=== PATIENT | female | born 1975 | race African-American/Black ===

== ENCOUNTER 2018-02-14 08:47 | Inpatient (IN) | payer BC ==
[~2018-02-14] VITALS: Ht 165.1 cm; Wt 98.9 kg
[2018-02-14] VITALS (12 sets, daily range): BP systolic 126–161; BP diastolic 83–107
[~2018-02-14 08:47] MED LIST: IBUPROFEN600 MG ORAL; LEVOTHYROXINE100 MCG ORAL; LOESTRIN1 EAC1 PO; LORTAB 10-3251 EACH PO; NORCO 5-325 TA1 EACH ORAL; OMEPRAZOLE40 M1 ORAL; VITAMIN D400 INTLU ORAL; WELLBUTRIN XL150 M1 ORAL; XANAX0.25 MG ORAL
--- NOTE | 2018-02-14 09:23 | Pre-Procedure Note/Attestation ---
Pre-Procedure Note/Attestation Complete Prior to Procedure Planned Procedure: not applicable Procedure Narrative: Myomectomy Indications for Procedure Pre-Operative Diagnosis: Severe uterine bleeding, severe dysmenorrhea, uterine fibroids, uterine adenomyosis Attestation I attest that I discussed the nature of the procedure; its benefits; risks and complications; and alternatives (and the risks and benefits of such alternatives ), prior to the procedure, with the patient (or the patient's legal manufacturer's representative). I attest that, if there was a reasonable possibility of needing a blood transfusion, the patient (or the patient's legal manufacturer's representative) was given the [facility] standardized written summary, pursuant to the [place]at[place] Blood Safety Act ([place] Health and Safety Code # 1645, as amended). I attest that I re-evaluated the patient just prior to the surgery and that there has been no change in the patient's H&P, except as documented below:NONE JIM COLON February 14, 2018 09:23
[2018-02-14] MEDS ORDERED: Ropivacaine 5mg/ml Vial 30ml INJ ONE (09:58)
[2018-02-14] MEDS ORDERED: Bupivacaine 0.5% Inj 30 ml vial INJ ONE (09:58)
[2018-02-14] MEDS ORDERED: LR 1000ml ONE (10:00)
[2018-02-14] MEDS ORDERED: Sterile Water Irrig 1000ml IRRIG ONE (10:00)
[2018-02-14] MEDS ORDERED: NS Irrig 1000ml ONE (10:00)
[2018-02-14] MEDS ORDERED: fentaNYL 100 mcg/2 mL IV ONE (10:07)
[2018-02-14] MEDS ORDERED: Midazolam 2mg/2ml Inj ONE (10:07)
[2018-02-14] MEDS ORDERED: Sugammadex Sodium 200mg/2ml vial IV ONE (10:07)
[2018-02-14] MEDS ORDERED: Dexamethasone 4mg/ml vial ONE (10:08)
[2018-02-14] MEDS ORDERED: Propofol 200mg/20ml IV ONE (10:08)
[2018-02-14] MEDS ORDERED: Ketorolac 30mg Inj ONE (10:08)
[2018-02-14] MEDS ORDERED: Zemuron 50mg/5ml Inj IV ONE (10:22)
--- NOTE | 2018-02-14 11:04 | Anethesia Preoperative Eval ---
Anesthesia Pre-op PMH/ROS General Date of Evaluation: February 14, 2018 Time of Evaluation: 10:00 Anesthesiologist: ASA Score: ASA 2 Mallampati Score Class I : Soft palate, uvula, fauces, pillars visible Class II: Soft palate, uvula, fauces visible Class III: Soft palate, base of uvula visible Class IV: Only hard plate visible Mallampati Classification: Class II Surgeon: elizabeth Diagnosis: uterine fibroids Surgical Procedure: myomectomy Anesthesia History: none Family History: no anesthesia problems Allergies: Coded Allergies: CEPHALEXIN (Verified Allergy, Severe, Hives, 03/23/15) CIPROFLOXACIN (Verified Allergy, Severe, Rash, 03/23/15) SULFA (SULFONAMIDE ANTIBIOTICS) (Unverified Allergy, Unknown, 03/23/15) ACETAMINOPHEN (Verified Adverse Reaction, Unknown, GI UPSET, 03/23/15) PROPOXYPHENE (Verified Adverse Reaction, Unknown, GI UPSET, 03/23/15) Medications: see eMAR Past Medical History Cardiovascular: Denies: HTN, CAD, ID, valve dz, arrhythmia, other Pulmonary: Denies: asthma, COPD, JACK, other Gastrointestinal/Genitourinary: Reports: GERD; Denies: CRI, ESRD, other Neurologic/Psychiatric: Reports: depression/anxiety; Denies: dementia, CVA, TIA, other Endocrine: Denies: DM, hypothyroidism, steroids, other HEENT: Denies: cataract (L), cataract (R), glaucoma, W[place]OAG (L), WAMP[place]OAG (R), other Hematology/Immune: Denies: anemia, DVT, bleeding disorder, other Musculoskeletal/Integumentary: Denies: OA, RA, DJD, DDD, edema, other Other: obesity PMH Narrative: craniotomy x 2 (2012,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 Exam Physician Exam Last Vital Signs Date Time Temp Pulse Resp B/P (MAP) Pulse Ox O2 Delivery O2 Flow Rate FiO2 02/14/18 09:28 97.1 82 18 126/83 97 Room Air 97.1 Constitutional: NAD Cardiovascular: RRR Respiratory: CTA Gastrointestinal: S/NT/ND Airway Exam Mallampati Score: Class II MO: full ROM: full Teeth: intact Dentures: no upper, no lower Anesthesia Pre-op A/P Labs Urine Test Test 02/14/18 09:00 Urine HCG, Qualitative Negative (NEGATIVE) Radha Ferraro M.D. February 14, 2018 11:04
[2018-02-14] MEDS ORDERED: LR 1000ml 1,000 ML IVLG SCH (11:05)
[2018-02-14] MEDS ORDERED: DiphenhydrAMINE 50mg/ml Inj IVP PRN (11:15)
[2018-02-14] MEDS ORDERED: Labetalol 5mg/ml 20ml vial IV PRN (11:15)
[2018-02-14] MEDS ORDERED: Midazolam 2mg/2ml Inj IVP PRN (11:15)
[2018-02-14] MEDS ORDERED: Interceed TOPIC ONE (12:02)
--- NOTE | 2018-02-14 13:00 | Brief Operative Note ---
Immediate Post Operative Note Operative Note Pre-op Diagnosis: Severe uterine bleeding, severe dysmenorrhea, uterine fibroids, uterine adenomyosis Procedure: Extensive uterine myomectomy Post-op Diagnosis: Same + extensive pelvic adhesions Post-op Diagnosis: same as pre-op plus Surgeon: Jim Colon MD Supervisor Doping: Purvi Roberts MD Anesthesiologist: MD Jasmine Anesthesia: general Specimen: yes - multiple fibroids Complications: none Condition: stable Fluids: D5 1/2 NL @125 cc/hr Estimated Blood Loss: volume - 100 ml Drains: none Implant(s) used?: No JIM COLON February 14, 2018 13:00
--- NOTE | 2018-02-14 13:04 | Immediate Post-Op Evaluation ---
Immediate Post-Op Evalulation Immediate Post-Op Evalulation Procedure: open abdominal myomectomy Date of Evaluation: February 14, 2018 Time of Evaluation: 12:50 IV Fluids: LR 1400ml Blood Products: 0 Estimated Blood Loss: 100ml Urinary Output: 400ml Blood Pressure Systolic: 146 Blood Pressure Diastolic: 100 Pulse Rate: 90 Respiratory Rate: 19 O2 Sat by Pulse Oximetry: 100 Temperature (Fahrenheit): 97.6 Pain Score (1-10): 9 Nausea: No Vomiting: No Complications none Patient Status: none Drug: none ordered Radha Ferraro M.D. February 14, 2018 13:04
[2018-02-14] MEDS: fentaNYL 100 mcg/2 mL IV PRN ×3 (13:10→13:40)
[2018-02-14] MEDS: Morphine Sulfate 4mg/ml Inj IVP SCH (13:15)
[2018-02-14] MEDS ORDERED: Docusate 100mg cap ORAL PRN (15:30)
[2018-02-14] MEDS ORDERED: Rate Change PCA 1 Each MISC PRN (16:00)
[2018-02-14] MEDS ORDERED: Naloxone 0.4mg/ml Inj IVP PRN (16:00)
[2018-02-14] MEDS: PCA Morphine 1mg/ml 30 ML IV PRN ×2 (16:08→20:12)
[2018-02-14] MEDS: Ketorolac 30mg Inj IM SCH ×2 (16:25→22:00)
[2018-02-14] MEDS: PCA Education Pamphlet MISC SCH (16:29)
[2018-02-14] MEDS: D5 1/2NS w/KCl 20mEq 1,000 ML IV SCH (16:48)
[2018-02-14] MEDS: PCA shift volume MISC SCH (19:18)
--- NOTE | 2018-02-14 22:31 | Operative Note - Dictated ---
DATE OF OPERATION: 02/14/2018 PREOPERATIVE DIAGNOSES: Uterine fibroids, extensive menometrorrhagia, and extensive pelvic pain. POSTOPERATIVE DIAGNOSES: Uterine fibroids, extensive menometrorrhagia, extensive pelvic pain, plus extensive pelvic adhesions due to two previous myomectomies. PROCEDURES PERFORMED: Extensive lysis of pelvic adhesions, enterolysis, and multiple myomectomy. SURGEON: Manny Kenyon M.D. REIMBURSEMENT AUDITOR: Purvi Roberts M.D. ANESTHESIOLOGIST: Dr. Ferraro. ANESTHESIA TYPE: General endotracheal. PROCEDURE IN DETAIL: After all the appropriate consents were signed, the patient was brought to the operating room and placed on the table in supine position. General endotracheal anesthesia was induced without complication. The patient was then placed in a dorsal lithotomy position. Perineum, vagina, and abdomen were prepped and draped in the usual fashion for the procedure. The patient was then evaluated and a Pfannenstiel incision was made. The Pfannenstiel incision was carried through the subcutaneous tissue and the fascia was nicked. The fascial incision was then extended bilaterally to expose the rectus muscle. The rectus muscle was parted in the midline and the peritoneum was entered sharply. The uterus was now visualized. The Damon retractor was placed and the procedure continued with grasping the uterus, retracting the uterus, and the pelvis. There were a number of adhesions on top of the uterine fundus and some of the adhesions were omental and some of the adhesions were bowel. At this time, adhesiolysis was undertaken and after approximately 25 to 30 minutes of adhesiolysis, the uterus was finally fully visualized and the areas of myomas were visualized. The enterolysis was performed along the uterus as well as the left adnexa. At this time, the uterus was injected with vasopressin and the fibroids were identified and gradually one after the other were removed. There were extensive areas of adenomyosis, which were also removed to reduce the bulk of adenomyosis on the uterus. Once all the areas were removed, the uterus was now closed using #0 Vicryl suture in multiple layers. The cavity was also closed prior to that with a 2-0 Vicryl suture. At this time, the procedure was continued with once again evaluating the uterus. Uterus was now fully closed and fully hemostatic. Intercede was placed on top of the uterus to prevent additional adhesion formation. The patient was now once again evaluated and the retractor was removed. The peritoneum was closed using 2-0 Vicryl suture. The muscles were approximated in the midline with #0 Vicryl suture and the fascia was closed using #0 Vicryl suture bilaterally. Plain suture was used to close the subcutaneous tissue. The skin was closed using stainless steel indira. The patient was now placed in the supine position and awakened from general anesthesia. She tolerated the procedure very well. She was transferred to the recovery room in excellent condition. Manny Zohra Kenyon DR: SOPHIE JOB#: [id number] CC:
[2018-02-15] VITALS: BP 124/80
[2018-02-15 04:00] VITALS: BP 128/88
[2018-02-15] MEDS: Ketorolac 30mg Inj IM SCH ×4 (04:00→22:04)
[2018-02-15 04:52] LABS: BASOPHILS % (AUTO) 1.5 % (0.0-2.0); EOSINOPHILS % (AUTO) 2.3 % (0.0-3.0); HEMATOCRIT 32.1 % (37.0-47.0); HEMOGLOBIN 10.5 G/DL (12.0-16.0); LYMPHOCYTES % (AUTO) 18.4 % (20.0-45.0); MEAN CORPUSCULAR VOLUME 90 FL (80-99); MONOCYTES % (AUTO) 11.9 % (1.0-10.0); NEUTROPHILS % (AUTO) 65.9 % (45.0-75.0); PLATELET COUNT 405 K/UL (150-450); RED BLOOD COUNT 3.56 M/UL (4.20-5.40); RED CELL DISTRIBUTION WIDTH 11.7 % (11.6-14.8); WHITE BLOOD COUNT 9.5 K/UL (4.8-10.8)
[2018-02-15 05:05] LABS: ANION GAP 9 mmol/L (5-15); BLOOD UREA NITROGEN 8 mg/dL (7-18); CALCIUM 8.4 MG/DL (8.5-10.1); CARBON DIOXIDE 26 MMOL/L (21-32); CHLORIDE 104 MMOL/L (98-107); CREATININE 0.7 MG/DL (0.55-1.30); POTASSIUM 3.7 MMOL/L (3.5-5.1); SODIUM 139 MMOL/L (136-145)
[2018-02-15] MEDS: PCA shift volume MISC SCH ×2 (07:00→19:29)
[2018-02-15 08:00] VITALS: BP 122/80
[2018-02-15] MEDS: D5 1/2NS w/KCl 20mEq 1,000 ML IV SCH ×4 (08:39→23:55)
[2018-02-15] MEDS ORDERED: Vitamin D 1000 IU Tab ORAL SCH (09:00)
[2018-02-15] MEDS ORDERED: BuPROPion XL 150mg tab ORAL SCH (09:00)
[2018-02-15 12:00] VITALS: BP 132/80
[2018-02-15] MEDS: Morphine Sulfate 4mg/ml Inj IVP SCH (13:15)
[2018-02-15] MEDS ORDERED: LORazepam Inj 2mg/ml 1ml IV PRN (15:15)
[2018-02-15] MEDS ORDERED: Docusate 100mg cap ORAL PRN (15:15)
[2018-02-15 16:00] VITALS: BP 126/89
[2018-02-15] MEDS: PCA Morphine 1mg/ml 30 ML IV PRN (16:13)
[2018-02-15] MEDS: PCA Education Pamphlet MISC SCH (16:14)
--- NOTE | 2018-02-15 17:38 | General Progress Note ---
Progress Note Progress Note POD #1 S/P extensive myomectomy, enterolysis, adhesion lysis Afebrile, ambulating, voiding Tolerating clear liquids Abdomen- soft Incision dry, clean, indira intact Dressing removed Increase ambulation Continue COMBAT SYSTEMS OFFICER, consider IM Morphine if IV is out JIM COLON February 15, 2018 17:38
[2018-02-15 20:50] VITALS: BP 124/84
[2018-02-16] VITALS: BP 128/80
[2018-02-16] MEDS: Ketorolac 30mg Inj IM SCH ×4 (04:17→21:01)
[2018-02-16 04:55] VITALS: BP 123/82
[2018-02-16] MEDS: PCA shift volume MISC SCH (07:27)
[2018-02-16] MEDS: D5 1/2NS w/KCl 20mEq 1,000 ML IV SCH ×2 (08:21→17:42)
[2018-02-16] MEDS: Vitamin D 1000 IU Tab ORAL SCH (08:22)
[2018-02-16] MEDS: BuPROPion XL 150mg tab ORAL SCH (08:22)
[2018-02-16] MEDS ORDERED: oxyCODONE HCL/Acetaminophen 5/325mg ORAL PRN (11:15)
[2018-02-16] MEDS: Morphine Sulfate 4mg/ml Inj IVP SCH (13:15)
[2018-02-16] MEDS: Docusate 100mg cap ORAL SCH (17:42)
[2018-02-16 20:25] VITALS: BP 120/77
[2018-02-17 00:43] VITALS: BP 123/71
[2018-02-17] MEDS: Ketorolac 30mg Inj IM SCH ×4 (04:06→22:00)
[2018-02-17 04:40] VITALS: BP 131/85
[2018-02-17] MEDS: D5 1/2NS w/KCl 20mEq 1,000 ML IV SCH ×2 (08:00)
[2018-02-17 08:15] VITALS: BP 143/95
[2018-02-17] MEDS: BuPROPion XL 150mg tab ORAL SCH (08:26)
[2018-02-17] MEDS: Docusate 100mg cap ORAL SCH ×3 (08:26→18:04)
[2018-02-17] MEDS: Vitamin D 1000 IU Tab ORAL SCH (08:26)
[2018-02-17 12:00] VITALS: BP 124/86
[2018-02-17] MEDS: Morphine Sulfate 4mg/ml Inj IVP SCH (13:15)
[2018-02-17] MEDS: Milk of Magnesia 30ml Ud ORAL SCH (16:36)
[2018-02-17 16:38] VITALS: BP 127/86
[2018-02-17] MEDS ORDERED: Milk of Magnesia 30ml Ud ORAL SCH (18:00)
[2018-02-17 20:21] VITALS: BP 143/91
[2018-02-18 00:23] VITALS: BP 135/84
[2018-02-18] MEDS: Ketorolac 30mg Inj IM SCH ×3 (03:53→16:00)
[2018-02-18 04:24] VITALS: BP 126/84
[2018-02-18 08:00] VITALS: BP 125/86
[2018-02-18] MEDS: Milk of Magnesia 30ml Ud ORAL SCH ×2 (08:13→13:00)
[2018-02-18] MEDS: Vitamin D 1000 IU Tab ORAL SCH (08:14)
[2018-02-18] MEDS: Docusate 100mg cap ORAL SCH ×2 (08:14→13:00)
[2018-02-18] MEDS: BuPROPion XL 150mg tab ORAL SCH (08:14)
[2018-02-18 12:00] VITALS: BP 132/80
[2018-02-18] MEDS: Morphine Sulfate 4mg/ml Inj IVP SCH (13:05)
[2018-02-18 16:00] VITALS: BP 128/78
== END 2018-02-18 17:45 | disposition home or self-care (01) | DRG 743 ==
LOC: SDSOVERFLO 08:47 → 3E 14:45
DX: D25.9 Leiomyoma of uterus, unspecified (principal); N99.4 Postprocedural pelvic peritoneal adhesions; N92.1 Excessive and frequent menstruation with irregular cycle; R10.2 Pelvic and perineal pain; E03.9 Hypothyroidism, unspecified; K21.9 Gastro-esophageal reflux disease without esophagitis; F32.9 Major depressive disorder, single episode, unspecified; Z88.6 Allergy status to analgesic agent; Z88.1 Allergy status to other antibiotic agents
CPT/HCPCS: 36415; 80048; 81025; 85025; 86850; 86900; 86901; 87081; J2250; J2405

== ENCOUNTER 2018-02-27 13:12 | Emergency (ER) | payer BC ==
[~2018-02-27] VITALS: Ht 165.1 cm; Wt 95.7 kg
[2018-02-27] MEDS ORDERED: Isovue-300 100ml vial INJ PRN (13:30)
[2018-02-27 13:39] VITALS: BP 108/77
[2018-02-27 13:58] LABS: BASOPHILS % (AUTO) 2.3 % (0.0-2.0); EOSINOPHILS % (AUTO) 10.9 % (0.0-3.0); HEMATOCRIT 37.3 % (37.0-47.0); LYMPHOCYTES % (AUTO) 24.6 % (20.0-45.0); MEAN CORPUSCULAR VOLUME 88 FL (80-99); MONOCYTES % (AUTO) 3.9 % (1.0-10.0); NEUTROPHILS % (AUTO) 58.2 % (45.0-75.0); PLATELET COUNT 597 K/UL (150-450); RED BLOOD COUNT 4.22 M/UL (4.20-5.40); RED CELL DISTRIBUTION WIDTH 11.9 % (11.6-14.8); WHITE BLOOD COUNT 10.1 K/UL (4.8-10.8)
[2018-02-27 14:10] LABS: ANION GAP 8 mmol/L (5-15); BLOOD UREA NITROGEN 11 mg/dL (7-18); CALCIUM 8.8 MG/DL (8.5-10.1); CARBON DIOXIDE 27 MMOL/L (21-32); CHLORIDE 105 MMOL/L (98-107); CREATININE 0.8 MG/DL (0.55-1.30); POTASSIUM 3.7 MMOL/L (3.5-5.1); SODIUM 140 MMOL/L (136-145)
[2018-02-27 14:17] LABS: ALANINE AMINOTRANSFERASE 17 U/L (12-78); ALBUMIN 3.3 G/DL (3.4-5.0); ALBUMIN/GLOBULIN RATIO 0.8 (1.0-2.7); ALKALINE PHOSPHATASE 77 U/L (46-116); ASPARTATE AMINO TRANSFERASE 12 U/L (15-37); BILIRUBIN,TOTAL 0.3 MG/DL (0.2-1.0)
[2018-02-27 15:00] LABS: APPEARANCE,URINE CLEAR; BILIRUBIN, URINE NEGATIVE (NEGATIVE); COLOR,URINE PALE YELLOW; GLUCOSE, URINE (UA) NEGATIVE (NEGATIVE); KETONES,URINE NEGATIVE (NEGATIVE); LEUKOCYTE ESTERASE ,URINE NEGATIVE (NEGATIVE); NITRITE,URINE NEGATIVE (NEGATIVE); PH,URINE 7 (4.5-8.0); PROTEIN,URINE NEGATIVE (NEGATIVE); UROBILINOGEN,URINE NORMAL MG/DL (0.0-1.0)
[2018-02-27 15:45] VITALS: BP 127/79
--- NOTE | 2018-02-27 15:48 | Emergency Room Report ---
History of Present Illness General Chief Complaint: Abdominal Pain Source: Patient, Medical Record Present Illness HPI 42-year-old female presents to the emergency department complaining of 10 out of 10 in severity postoperative pain in the lower abdomen/uterus area. Patient status post Myomectomy which was performed on 02/14 . She reports that she has experienced short episodes of chills since yesterday she denies fever. Patient states that initially she was feeling fine and was discharged home with just Motrin however since the she has had acute progression of her pain and tenderness. She denies vaginal discharge or swollen tender lymph nodes. Patient denies erythema, discharge or dehiscence of her surgical wound. Patient states that she contacted her LEATHER CUTTER who performed the procedure and he instructed her to go to the emergency department for evaluation. Pain is exacerbated with standing up straight. She reports new onset nausea since yesterday denies vomiting she denies dysuria, hematuria, constipation or diarrhea. Allergies: Coded Allergies: CEPHALEXIN (Verified Allergy, Severe, Hives, 03/23/15) CIPROFLOXACIN (Verified Allergy, Severe, Rash, 03/23/15) SULFA (SULFONAMIDE ANTIBIOTICS) (Unverified Allergy, Unknown, 03/23/15) ACETAMINOPHEN (Verified Adverse Reaction, Unknown, GI UPSET, 03/23/15) PROPOXYPHENE (Verified Adverse Reaction, Unknown, GI UPSET, 03/23/15) Patient History Past Medical History: see triage record Past Surgical History: none Pertinent Family History: none Last Menstrual Period: 02/24/18 Reviewed Nursing Documentation: PMH: Agreed; PSxH: Agreed Nursing Documentation-PMH Past Medical History: No History, Except For Hx Cardiac Problems: No Hx Cancer: No Hx Gastrointestinal Problems: No Hx Neurological Problems: Yes Hx Neurologic Surgery: Yes - CRANIOTOMY IN 2012 AND 2016 DUE TO CHIARI MALFORMATION Review of Systems All Other Systems: negative except mentioned in HPI Physical Exam Vital Signs Date Time Temp Pulse Resp B/P (MAP) Pulse Ox O2 Delivery O2 Flow Rate FiO2 02/27/18 13:17 98.0 92 18 112/77 95 Room Air 98.1 Sp02 EP Interpretation: reviewed, normal General Appearance: alert, GCS 15, non-toxic, moderate distress Head: normocephalic, atraumatic ENT: hearing grossly normal, normal voice Neck: full range of motion Respiratory: lungs clear, normal breath sounds, speaking full sentences Cardiovascular #1: regular rate, rhythm Gastrointestinal: normal bowel sounds, soft, non-distended, no guarding, other - Moderate TTP to the lower abdomen, surgical scar noted to be healing without obvious sigs of infection. no erythema, d/c or dehiscence. Rectal: deferred Genitourinary: normal inspection Musculoskeletal: back normal, gait/station normal, normal range of motion, non- tender Neurologic: alert, oriented x3, responsive, motor strength/tone normal, sensory intact, speech normal, grossly normal Psychiatric: judgement/insight normal Skin: normal color, no rash, warm/dry, well hydrated, wd healing/no infection noted, other - surgical scar noted to be healing without obvious sigs of infection. no erythema, d/c or dehiscence. Lymphatic: no adenopathy Medical Decision Making PA Attestation Dr. Pittman is my supervising Physician whom patient management has been discussed with. Diagnostic Impression: Primary Impression: Post-operative pain ER Course 42-year-old female presents to the emergency department complaining of 10 out of 10 in severity postoperative pain in the lower abdomen/uterus area. Patient status post Myomectomy which was performed on 02/14 . She reports that she has experienced short episodes of chills since yesterday she denies fever. Patient states that initially she was feeling fine and was discharged home with just Motrin however since the she has had acute progression of her pain and tenderness. She denies vaginal discharge or swollen tender lymph nodes. Patient denies erythema, discharge or dehiscence of her surgical wound. Patient states that she contacted her LEATHER CUTTER who performed the procedure and he instructed her to go to the emergency department for evaluation. Pain is exacerbated with standing up straight. She reports new onset nausea since yesterday denies vomiting she denies dysuria, hematuria, constipation or diarrhea. Ddx considered but are not limited to wound dehiscence, abscess formation, cellulitis, seroma , peritonitis just to name a few. Vital signs: are WNL, pt. is afebrile H&PE are most consistent with was operative pain. ORDERS: -CT Abdomen and Pelvis with contrast. CBC, CMP, , UA- WNL, no evidence to suggest infection. Hcg: Negative ED INTERVENTIONS: [place] PO I discussed the results of this patient's labs and imaging with Dr. Kenyon, who is the LEATHER CUTTER who performed her procedure. He states patient can be discharged home with oral pain medications and has instructed her to calm to the office for follow-up evaluation on Saturday. She also stated that she actually has an appointment tomorrow with him that his arty been scheduled previously. DISCHARGE: At this time pt. is stable for d/c to home. Will provide printed patient care instructions, and any necessary prescriptions. Care plan and follow up instructions have been discussed with the patient prior to discharge. Labs Test 02/27/18 13:35 02/27/18 14:30 White Blood Count 10.1 K/UL (4.8-10.8) Red Blood Count 4.22 M/UL (4.20-5.40) Hemoglobin 12.0 G/DL (12.0-16.0) Hematocrit 37.3 % (37.0-47.0) Mean Corpuscular Volume 88 FL (80-99) Mean Corpuscular Hemoglobin 28.4 PG (27.0-31.0) Mean Corpuscular Hemoglobin Concent 32.1 G/DL (32.0-36.0) Red Cell Distribution Width 11.9 % (11.6-14.8) Platelet Count 597 K/UL (150-450) Mean Platelet Volume 5.6 FL (6.5-10.1) Neutrophils (%) (Auto) 58.2 % (45.0-75.0) Lymphocytes (%) (Auto) 24.6 % (20.0-45.0) Monocytes (%) (Auto) 3.9 % (1.0-10.0) Eosinophils (%) (Auto) 10.9 % (0.0-3.0) Basophils (%) (Auto) 2.3 % (0.0-2.0) Sodium Level 140 MMOL/L (136-145) Potassium Level 3.7 MMOL/L (3.5-5.1) Chloride Level 105 MMOL/L (98-107) Carbon Dioxide Level 27 MMOL/L (21-32) Anion Gap 8 mmol/L (5-15) Blood Urea Nitrogen 11 mg/dL (7-18) Creatinine 0.8 MG/DL (0.55-1.30) Estimat Glomerular Filtration Rate > 60 mL/min (>60) Glucose Level 95 MG/DL (74-106) Calcium Level 8.8 MG/DL (8.5-10.1) Total Bilirubin 0.3 MG/DL (0.2-1.0) Aspartate Amino Transf (AST/SGOT) 12 U/L (15-37) Alanine Aminotransferase (ALT/SGPT) 17 U/L (12-78) Alkaline Phosphatase 77 U/L (46-116) Total Protein 7.2 G/DL (6.4-8.2) Albumin 3.3 G/DL (3.4-5.0) Globulin 3.9 g/dL Albumin/Globulin Ratio 0.8 (1.0-2.7) Lipase 175 U/L (73-393) Urine Color Pale yellow Urine Appearance Clear Urine pH 7 (4.5-8.0) Urine Specific [place] 1.010 (1.005-1.035) Urine Protein Negative (NEGATIVE) Urine Glucose (UA) Negative (NEGATIVE) Urine Ketones Negative (NEGATIVE) Urine Occult Blood Negative (NEGATIVE) Urine Nitrite Negative (NEGATIVE) Urine Bilirubin Negative (NEGATIVE) Urine Urobilinogen Normal MG/DL (0.0-1.0) Urine Leukocyte Esterase Negative (NEGATIVE) Urine HCG, Qualitative Negative (NEGATIVE) CT/MRI/US Diagnostic Results CT/MRI/US Diagnostic Results : Imaging Test Ordered: CT Abdomen and Pelvis With Contrast Impression " Small amount of free fluid within the pelvis. There is soft tissue stranding likely indicative of recent surgery. The uterine fundus is irregular and there is postsurgical changes likely due to recent partial myomectomy. Correlate clinically. There is also a small amount of fluid and ill-definition of the lower part of the anterior abdominal wall which may be due to recent surgery alveolitis not excluded, there are no drainable abscess. The bladder is nondistended." Per official radiology report- Please see report for specific details. Last Vital Signs Date Time Temp Pulse Resp B/P (MAP) Pulse Ox O2 Delivery O2 Flow Rate FiO2 02/27/18 13:39 98.1 81 20 108/77 95 Room Air 98.1 Disposition: HOME, SELF-CARE Condition: Stable Scripts Hydrocodone Bit/Acetaminophen 5-325* (NORCO 5-325*) 1 Each Tablet 1 TAB ORAL Q6H PRN for For Pain, #10 TAB 0 Refills Prov: Sierra Laech 02/27/18 Additional Instructions: Take medications as directed. Follow up with Dr. Kenyon On Saturday of next week, even if your symptoms have resolved. Return sooner to ED if new symptoms occur, or current symptoms become worse. Do not drink alcohol, drive, or operate heavy machinery while taking [ as this may cause drowsiness. - Please note that this Emergency Department Report was dictated using GutCheckreducing machine operator technology software, occasionally this can lead to erroneous entry secondary to interpretation by the dictation equipment. Sierra Leach February 27, 2018 15:48
--- NOTE | 2018-02-27 16:29 | Diagnostic Imaging Report ---
Indication: Abdominal pain Technique: Continuous helical transaxial imaging of the abdomen and pelvis was obtained from the lung bases to the pubic symphysis during intravenous contrast administration. Coronal 2-D reformats were also obtained. Study obtained in a Siemens sensation [address] Automatic Exposure Control was utilized. Total Dose length Product (DLP): 1030.[address] Dose Index Volume (CTDIvol): 19.51 mGy Comparison: None Findings: Lung bases are clear. There is a sliding hernia. Gallbladder is contracted. Liver and spleen are unremarkable. Kidneys are unremarkable. There is no hydronephrosis. Small nodes are demonstrated in the mesentery nonspecific. The appendix is normal. Within the pelvis there is a small amount of free fluid present. There is soft tissue stranding likely indicative of recent surgery. The uterine fundus is irregular and there is postsurgical changes likely due to recent partial myomectomy. Correlate clinically. There is also a small amount of fluid and ill definition of the lower part of the anterior abdominal wall which may be due to recent surgery. Cellulitis not excluded. There is no drainable abscess. The bladder is nondistended. IMPRESSION: Free fluid within the pelvis with irregularity of the uterine fundal region consistent with recent surgery. Superimposed infection involving the periuterine region and the anterior lower abdominal wall is not excluded. There is no drainable abscess. Please correlate clinically and suggest follow-up CT. The CT scanner at [facility] is accredited by the [employer] and the scans are performed using dose optimization techniques as appropriate to a performed exam including Automatic Exposure control.
[2018-02-27] MEDS ORDERED: NORCO 5-325 TA1 EACH ORAL (17:07)
[2018-02-27] MEDS ORDERED: Norco 5mg/325mg tab ORAL ONE (17:15)
[2018-02-27 17:34] VITALS: BP 128/86
== END 2018-02-27 17:30 | disposition home or self-care (01) ==
LOC: EMR 16:06
DX: G89.18 Other acute postprocedural pain (principal); R10.30 Lower abdominal pain, unspecified; Z98.890 Other specified postprocedural states; Z88.2 Allergy status to sulfonamides; Z88.6 Allergy status to analgesic agent; Z88.8 Allergy status to other drugs, medicaments and biological substances
CPT/HCPCS: 36415; 74177; 80053; 81003; 81025; 83690; 85025; 99284; Q9967